=== PATIENT | male | born 1995 | race Caucasian/White ===

== ENCOUNTER 2016-11-19 05:22 | Day surgery (SDC) | payer OTHER ==
[2016-11-13 11:51] LABS: ABSOLUTE LYMPHOCYTES (AUTO) 1.7 10^3/uL (0.5-4.7); ABSOLUTE MONOCYTES (AUTO) 0.7 10^3/uL (0.1-1.4); ABSOLUTE NEUT (AUTO) 9.5 10^3/uL (1.7-8.2); BASOPHILS % (AUTO) 0.3 % (0-2); EOSINOPHILS % (AUTO) 0.4 % (0-6); HEMATOCRIT 43.4 % (37.9-51.0); HEMOGLOBIN 14.9 g/dL (13.5-17.0); HGB HCT DIFFERENCE 1.3; LYMPHOCYTES % (AUTO) 14.5 % (13-45); MEAN CORPUSCULAR HEMOGLOBIN 31.4 pg (27.0-33.4); MEAN CORPUSCULAR HGB CONC 34.3 g/dL (32.0-36.0); MEAN CORPUSCULAR VOLUME 91 fl (80-97); MONOCYTES % (AUTO) 6.1 % (3-13); RED BLOOD COUNT 4.75 10^6/uL (4.35-5.55); RED CELL DISTRIBUTION WIDTH 12.9 % (11.5-14.0); SEGMENTED NEUTROPHILS % (AUTO) 78.7 % (42-78)
[~2016-11-19 05:22] MED LIST: CEFAZOLIN 2 GM/D5W RTU 2 GM/50 ML RTUPB IV PRN; LACTATED RINGERS 1000 ML IV PRN; MORPHINE SULFATE 10 MG/ML INJ IV PRN; ONDANSETRON HCL INJ/PF 4 MG/2 ML SDV IV PRN
[2016-11-19] MEDS ORDERED: FENTANYL CITRATE INJ/PF 100 MCG/2 ML AMPUL ONE (06:43)
[2016-11-19] MEDS ORDERED: MIDAZOLAM 2 MG/2 ML INJ ONE (06:44)
[2016-11-19] MEDS ORDERED: PROPOFOL INJ 200 MG/20 ML VIAL IV ONE (06:44)
[2016-11-19] MEDS ORDERED: BUPIVACAINE HCL 0.25 % INJ/PF (2.5 MG/1 ML) 30 ML VIAL ONE (07:16)
[2016-11-19] MEDS ORDERED: MEPERIDINE HCL/PF INJ 25 MG/1 ML DISP.SYRIN IV PRN (08:05)
[2016-11-19] MEDS ORDERED: FENTANYL CITRATE INJ/PF 100 MCG/2 ML AMPUL IV PRN ×3 (08:05)
[2016-11-19] MEDS ORDERED: DIPHENHYDRAMINE HCL 50 MG/ML VIAL IV PRN (08:05)
[2016-11-19] MEDS ORDERED: PROMETHAZINE HCL INJ 25 MG/1 ML VIAL IV PRN (08:05)
--- NOTE | 2016-11-19 08:43 | Brief Operative Note ---
BRIEF OPERATIVE REPORT DATE OF SURGERY: 11/19/16 TIME OF SURGERY: 07:30 PREOPERATIVE DIAGNOSIS: left epididymitis/testicular pain POSTOPERATIVE DIAGNOSIS: left epididymitis/testicular pain SURGEON: LEAH CRENSHAW FINDINGS: Epididymis removed. Tesicle unremarkable otherwise COMPLICATIONS: none ESTIMATED BLOOD LOSS: 5 TISSUE REMOVED OR ALTERED: left epididymis TECHNICAL PROCEDURE: left epididymectomy
--- NOTE | 2016-11-19 09:21 | OPERATIVE REPORT E ---
Operative Report NAME: CINDY TAFOYA : 1995 AGE: 20Y DATE OF SURGERY: 11/19/2016 ROOM: PREOPERATIVE DIAGNOSIS: Left epididymitis with left testicular pain. POSTOPERATIVE DIAGNOSIS: Left epididymitis with left testicular pain. PROCEDURE PERFORMED: Left epididymectomy. SURGEON: Nate Crockett M.D. ANESTHESIA: General LMA. ESTIMATED BLOOD LOSS: 5 mL. INTRAVENOUS FLUIDS: 800 mL. SPECIMENS: Left epididymis. COMPLICATIONS: None. CONDITION: Stable. INDICATIONS FOR PROCEDURE: The patient is a 20-year-old [employer] with chronic epididymitis and left testicular pain. He has failed all conservative management with cord block, pelvic floor physical therapy, Alpha-Stim and calamare and still has persistence of pain. He was seen by several urologists and pain specialists for his pain and had previously been offered epididymectomy and, now that he has failed every other measure, excepting this, he presents for epididymectomy. We did discuss the risks and benefits of this surgery, including persistence of pain and injury to the testicle or need for orchiectomy and he confirmed consent to proceed. DESCRIPTION OF PROCEDURE: The patient was identified in the preoperative holding area. The surgery with all of the attendant risks and benefits were again described in detail to the patient and he confirmed his consent to proceed. He was brought back to the operating room. He had Ancef 2 g given prior to starting the case. We then shaved his scrotum, prepped and draped in the usual sterile fashion after induction of anesthesia, and then we began the case. We marked the midline incision on the scrotum approximately 2.5 cm in size and then incised this with a scalpel. We carried dissection down to deliver the testicle. We pushed the testicle out and freed it from all the cremasteric and dartos attachments. Once this was free we opened the tunica and delivered the testis from it and then easily identified the epididymis and testicle. The appendix testis was removed and then we carefully dissected the epididymis free using a combination of Bovie and the bipolar. Once this was dissected free we suture ligated it and removed it. We passed it off labeled left epididymis. We then inspected for hemostasis, which we achieved using judicious use of the bipolar and the Bovie. We then placed the testis back in the scrotum and performed a cord block with 0.25% Marcaine and then closed the dartos layer with 3-0 Vicryl and then the skin with a running 4-0 Monocryl in a horizontal mattress stitch. We then used some more local at the skin incision and then provided a dorsal penile and ring block. The patient was then cleaned. He had fluffs and scrotal support placed. He was awoken from anesthesia and transferred to the PACU in stable condition where he will be recovered. Plan is for discharge per PACU protocol and we will follow up as an outpatient. DICTATING PHYSICIAN: Nate Crockett MD [id number] PHY#: [id number] ID: [id number] JOB#: [id number] ACCT: [id number] cc:Nate Crockett M.D. > MTDD
[2016-11-19] MEDS ORDERED: OXYCODONE-ACETAMINOPHEN 5-325 MG TABLET PO PRN ×2 (09:23)
[2016-11-19] MEDS ORDERED: MORPHINE SULFATE 10 MG/ML INJ IV PRN (09:23)
[2016-11-19] MEDS ORDERED: ONDANSETRON HCL INJ/PF 4 MG/2 ML SDV IV PRN (09:24)
[2016-11-19] MEDS ORDERED: OXYCODONE-ACETAMINOPHEN 5-325 MG TABLET ONE (09:25)
[2016-11-19] MEDS ORDERED: DEXAMETHASONE SOD PHOSPHATE INJ 4 MG/1 ML VIAL ONE (10:58)
[2016-11-19] MEDS ORDERED: GLYCOPYRROLATE INJ 0.4 MG/2 ML VIAL ONE (10:58)
[2016-11-19] MEDS ORDERED: ONDANSETRON HCL INJ/PF 4 MG/2 ML SDV ONE (10:58)
[2016-11-19] MEDS ORDERED: LIDOCAINE 2% INJ-PF (20 MG/ML) 10 ML AMPUL ONE (10:58)
[2016-11-19 11:49] VITALS: BP 125/71
== END 2016-11-19 11:35 | disposition home or self-care (01) ==
LOC: OROUT 05:22
PROVIDERS: ATTEND Urology
PROC: 0VTK0ZZ Resection of Left Epididymis, Open Approach (ICD-10-PCS; principal; 2016-11-19 07:30)
DX: N45.1 Epididymitis (principal); N50.812 Left testicular pain; R07.9 Chest pain, unspecified; I20.9 Angina pectoris, unspecified; F17.210 Nicotine dependence, cigarettes, uncomplicated; Z79.899 Other long term (current) drug therapy; I25.2 Old myocardial infarction
CPT/HCPCS: 36415; 85025; 88304 ×2; 54860; J2250; J1100; J3010; J2270; J2405; J2704; J3490; 920